=== PATIENT | female | born 1990 | race Two or more races ===

== ENCOUNTER 2019-09-20 20:56 | Emergency (ER) | payer SELFPAY ==
[~2019-09-20] VITALS: Ht 157.5 cm; Wt 76.7 kg
[2019-09-20 21:10] VITALS: BP 128/82
--- NOTE | 2019-09-20 21:10 | NUR ---
ED Nurse Note: Pt walked into ED from home for c/o difficulty breathing the past two days and flu like symptoms such as body aches, cough. Pt is in no respiratory distress, breathing is normal and unlabored. Pt is aaox4, no cardiac distress noted. Pt ambulatory with steady gait. will continue to monitor.
[2019-09-20] MEDS ORDERED: ALBUTEROL SULF8.5 GM INH (21:23)
[2019-09-20] MEDS ORDERED: TAMIFLU75 MG ORAL (21:23)
[2019-09-20] MEDS ORDERED: MEDROL DOSEPAK4 MG ORAL (21:23)
[2019-09-20 21:30] VITALS: BP 128/82
--- NOTE | 2019-09-20 21:30 | NUR ---
ER DISCHARGE NOTE: Patient is cleared to be discharged per ERMD, pt is aox4, on room air, with stable vital signs. pt was given dc and prescription instructions, pt was able to verbalize understanding, pt id band removed. pt is able to ambulate with steady gait. pt took all belongings.
--- NOTE | 2019-09-20 21:33 | Emergency Room Report ---
History of Present Illness General Chief Complaint: Asthma Source: Patient Present Illness HPI Patient presents with complaints of shortness of breath sensation Reports that she has been sick for the past 3 days mild cough body ache patient has history of asthma and also feels short of breath denies any chest pain patient has a burning tingling sensation in the upper back Denies any pleurisy denies any vomiting or diarrhea denies any focal weakness Questionable low-grade fever subjectively Allergies: Coded Allergies: No Known Allergies (Unverified , 09/20/19) Patient History Past Medical History: see triage record Last Menstrual Period: 09/20/18 Now: No Reviewed Nursing Documentation: PMH: Agreed; PSxH: Agreed Nursing Documentation-PMH Past Medical History: No History, Except For Hx Asthma: Yes Review of Systems All Other Systems: negative except mentioned in HPI Physical Exam Vital Signs Date Time Temp Pulse Resp B/P (MAP) Pulse Ox O2 Delivery O2 Flow Rate FiO2 09/20/19 21:03 98.2 84 14 128/82 (97) 98 Room Air Sp02 EP Interpretation: reviewed, normal General Appearance: well appearing, no apparent distress Head: normocephalic, atraumatic Eyes: bilateral eye PERRL, bilateral eye EOMI ENT: hearing grossly normal, normal pharynx, TMs + canals normal, uvula midline Neck: full range of motion, supple, no meningismus, no bony tend Respiratory: lungs clear, normal breath sounds, no rhonchi, no respiratory distress, no retraction, no accessory muscle use Cardiovascular #1: normal peripheral pulses, regular rate, rhythm, no edema, no gallop, no JVD, no murmur Gastrointestinal: normal bowel sounds, non tender, soft, no mass, no organomegaly, non-distended, no guarding, no hernia, no pulsatile mass, no rebound Genitourinary: no CVA tenderness Musculoskeletal: normal inspection Neurologic: motor strength/tone normal, 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, oriented x3 , sensory intact, responsive Psychiatric: mood/affect normal Skin: no rash Lymphatic: normal inspection, no adenopathy Medical Decision Making Diagnostic Impression: Primary Impression: flu symptoms ER Course Multiple differentials including but not limited to asthma exacerbation, flu, URI, pneumonia considered Patient lung sounds are clear Given the history and presentation findings are consistent with flulike symptoms patient is provided with symptomatic medication and will have close outpatient follow-up Last Vital Signs Date Time Temp Pulse Resp B/P (MAP) Pulse Ox O2 Delivery O2 Flow Rate FiO2 09/20/19 21:03 98.2 84 14 128/82 (97) 98 Room Air Status: unchanged Disposition: HOME, SELF-CARE Condition: Stable Scripts Oseltamivir Phosphate (Tamiflu) 75 Mg Capsule 75 MG ORAL TWICE A DAY for 5 Days, CAP Prov: Dat Shaw DO 09/20/19 Albuterol Sulfate* (ALBUTEROL SULFATE MDI*) 8.5 Gm Hfa.aer.ad 2 PUFF INH Q6H, #1 EA 0 Refills Prov: Dat Shaw DO 09/20/19 Methylprednisolone (Methylprednisolone*) 4MG Dspk 4 MG ORAL DIRECTED for 6 Days, #21 EA 0 Refills Day 1: Two tablets before breakfast, one after lunch, one after dinner, and two at bedtime. If started late in the day, take all six tablets at once or divide into two or three doses, unless otherwise directed by prescriber. Day 2: One tablet before breakfast, one after lunch, one after dinner, and two at bedtime Day 3: One tablet before breakfast, one after lunch, one after dinner, and one at bedtime Day 4: One tablet before breakfast, one after lunch, and one at bedtime Day 5: One tablet before breakfast and one at bedtime Day 6: One tablet before breakfast Prov: Dat Shaw DO 09/20/19 Referrals: [facility] Patient Instructions: Influenza, Adult, [id number] Additional Instructions: Patient is provided with the discharge instructions notified to follow up with primary doctor in the next 2-3 days otherwise return to the er with any worsening symptoms. Please note that this report is being documented using [employer] technology. This can lead to erroneous entry secondary to incorrect interpretation by the dictating instrument. Dat Shaw DO Sep 20, 2019 21:33
== END 2019-09-20 21:30 | disposition home or self-care (01) ==
LOC: EMR 21:15
DX: J11.1 Influenza due to unidentified influenza virus with other respiratory manifestations (principal); J45.909 Unspecified asthma, uncomplicated
CPT/HCPCS: 99282